=== PATIENT | male | born 1955 | race Hispanic/Latino ===

== ENCOUNTER 2019-11-20 15:25 | Emergency (ER) | payer SELFPAY ==
[~2019-11-20] VITALS: Ht 165.1 cm; Wt 59.0 kg
[2019-11-20] MEDS ORDERED: SODIUM CHLORIDE 0.9% 1000ML 1,000 ML IV STA ×2 (16:00→18:08)
--- NOTE | 2019-11-20 16:55 | Diagnostic Imaging Report ---
TECHNIQUE: Frontal view of the chest. INDICATION: ^Y ^RESP DISTRESS AT MEDICAL RESORT ^[id number] ^1620 COMPARISON: None DISCUSSION: Limited evaluation due to portable technique. Lines and hardware: Overlying EKG leads are noted. Tracheostomy tube is noted with tip projecting at the thoracic inlet. Heart and mediastinum: Cardiomediastinal silhouette and pulmonary vascularity are within normal limits. Lungs and pleura: There are patchy linear airspace opacities at the left lung base with silhouetting of the left hemidiaphragm. Negative for large effusion or pneumothorax. Soft tissues and bones: No acute abnormality. IMPRESSION: Patchy airspace opacities at the left lung base could relate to developing consolidation. Aspiration is a consideration. Signed by: Madi Germain MD on 11/20/2019 4:52 PM
[2019-11-20 17:12] LABS: BASOPHILS % 0.3 % (0.0-1.0); EOSINOPHILS % 0.3 % (0.0-6.0); HEMATOCRIT 42.2 % (38.2-49.6); HEMOGLOBIN 12.7 g/dL (14.0-18.0); INR 0.95; LYMPHOCYTES # (AUTO) 0.8 (1.0-3.2); LYMPHOCYTES % 7.9 % (18.0-39.1); MEAN CORPUSCULAR HEMOGLOBIN 23.2 pg (28-32); MEAN CORPUSCULAR HGB CONC 30.1 g/dL (31-35); MEAN CORPUSCULAR VOLUME 77.1 fL (81-99); MONOCYTES # (AUTO) 0.6 (0.2-0.8); MONOCYTES % 5.4 % (4.4-11.3); NEUTROPHILS % 85.4 % (38.7-80.0); PLATELET COUNT 354 x10e3/uL (140-360); PROTHROMBIN TIME 13.1 seconds (11.9-14.5); RED BLOOD COUNT 5.47 x10e6/uL (4.3-5.7)
[2019-11-20 17:13] LABS: PARTIAL THROMBOPLASTIN TIME 29.1 seconds (23.8-35.5)
[2019-11-20 17:19] LABS: ALANINE AMINOTRANSFERASE 37 IU/L (0-55); ALBUMIN 4.6 g/dL (3.5-5.0); ALBUMIN/GLOBULIN RATIO 1.5 (0.8-2.0); ALKALINE PHOSPHATASE 87 IU/L (40-150); ANION GAP 19.6 mmol/L (8-16); BLOOD UREA NITROGEN 20 mg/dL (7-26); BUN/CREATININE RATIO 42 (6-25); CARBON DIOXIDE 25 mmol/L (22-29); CHLORIDE 98 mmol/L (98-107); CREATINE KINASE 70 IU/L (30-200); CREATININE, SERUM 0.48 mg/dL (0.72-1.25); EST GLOMERULAR FILTRATION RATE > 60 ML/MIN (60-); GLUCOSE 166 mg/dL (74-118); POTASSIUM 4.6 mmol/L (3.5-5.1); SODIUM 138 mmol/L (136-145)
[2019-11-20 17:43] LABS: B-TYPE NATRIURETIC PEPTIDE2 21.6 pg/mL (0-100)
[2019-11-20 17:48] LABS: ABG HCO3 34 mmol/L (22-26); ABG PCO2 43 mmHg (35-45); ABG PO2 520 mmHg (80-105); ABG TCO2 35
--- OUTSIDE RECORDS SUMMARY | 2019-11-20 17:57 | XMS REPORT | Continuity of Care Document ---
Author Author [facility] t Organization [facility] Address [address] [place] [address] Phone Unavailable Care Team Providers Care Search Consultant Name Role Phone José Manuel CARR Attphys Unavailable Problems This patient has no known problems. Allergies, Adverse Reactions, Alerts This patient has no known allergies or adverse reactions. Medications This patient has no known medications. Procedures This patient has no known procedures. Results Test Description Test Time Test Comments Results Result Comments Source CHEST SINGLE (PORTABLE) 2019-11-20 16:51:00 [place] [address] Patient Name: YESSICA SILVA MR #: [id number] : 1955 Age/Sex: 63/M Req #: [id number] Adm Physician: Ordered by: OMAR CARR MD Report #: [id number] Location: ER Room/Bed: Procedure: [id number] DX/CHEST SINGLE (PORTABLE) Exam Date: 11/20/19 Exam Time: 1619 REPORT STATUS: Signed TECHNIQUE: Frontal view of the chest. INDICATION: Y RESP DISTRESS AT MEDICAL RESORT [id number] COMPARISON: None DISCUSSION: Limited evaluation due to portable technique. Lines and hardware: Overlying EKG leads are noted. Tra cheostomy tube is noted with tip projecting at the thoracic inlet. Heart and mediastinum: Cardiomediastinal silhouette and pulmonary vascularity are within normal limits. Lungs and pleura: There are patchy linear airspace opacities at the left lung base with silhouetting of the left hemidiaphragm. Negative for large effusion or pneumothorax. Soft tissues and bones: No acute abnormality . IMPRESSION: Patchy airspace opacities at the left lung base could relate to developing consolidation. Aspiration is a consideration. Signed by: Amparo Germain MD on 11/20/2019 4:52 PM Dictated By: AMPARO GERMAIN MD 51 Transcribed By: LEIA on 11/20/191651 COPY TO: OMAR CARR MD
[2019-11-20 17:58] LABS: CLARITY,URINE SL CLOUDY (CLEAR); COLOR,URINE STRAW (YELLOW); LEUKOCYTE ESTERASE ,URINE SMALL (NEGATIVE)
[2019-11-20 17:59] LABS: BILIRUBIN,URINE NEGATIVE (NEGATIVE); KETONES,URINE NEGATIVE (NEGATIVE); NITRITE,URINE NEGATIVE (NEGATIVE); PROTEIN,URINE DIPSTICK >=300 (NEGATIVE); URINE UROBILINOGEN 0.2 mg/dL (0.2 - 1)
--- NOTE | 2019-11-20 18:01 | NUR ---
Beatriz Bee - [phone] , pt's daughter
--- NOTE | 2019-11-20 18:08 | Emergency Department Note ---
History of Present Illnes History of Present Illness Chief Complaint: General Medicine Complaints History of Present Illness This is a 63 year old male brought by EMS for evaluation of elevated HR of 160 BPM. patient seen at bedside NAD with Sinus Tachycardia of 115 bpm. Patient does not appear to be in any acute distress . Historian: Sorter Pricer/EMS Arrival Mode: [facility] Treatment BILLET RECORDER: IV, O2, See EMS Report History limited by: condition of the patient Severity: mild Onset quality: sudden Duration (how long): hour(s) (1) Timing of current episode: constant Progression: improving Chronicity: new Context: Denies recent illness, Denies recent surgery, Denies recent immobil ization, Denies recent travel, Denies trauma/injury, Denies new medications, Denies hx of DVT/PE, Denies non-compliance w/ medications, Denies other Associated symptoms: Denies denies other symptoms, Denies confusion, Denies chest pain, Denies cough, Denies diaphoresis, Denies fever/chills, Denies headaches, Denies loss of appetite, Denies malaise, Denies nausea/vomiting, Den ies rash, Denies seizure, Denies shortness of breath, Denies syncope, Denies weakness, Denies other Past Medical/Family History Physician Review I have reviewed the patient's past medical and family history. Any updates have been documented here. 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, dysphagia, quadriplegia, amyotrophic lateral sclerosis, tachycardia Social History Alcohol Use: None Any Illegal Drug Use: No Review of Systems Review of Systems Constitutional: Reports no symptoms EENTM: Reports no symptoms Cardiovascular: Reports no symptoms Respiratory: Reports no symptoms Gastrointestinal: Reports no symptoms Genitourinary: Reports no symptoms Musculoskeletal: Reports no symptoms Integumentary: Reports no symptoms Neurological: Reports no symptoms Psychological: Reports no symptoms Endocrine: Reports no symptoms Hematological/Lymphatic: Reports no symptoms Physical Exam Related Data Allergies: Coded Allergies: No Known Allergies (Unverified , 11/20/19) Triage Vital Signs Vital Signs Date Time Temp Pulse Resp B/P (MAP) Pulse Ox O2 Delivery O2 Flow Rate FiO2 11/20/19 15:35 76 17 100 17.0 50 11/20/19 15:43 97.6 118/62 Trach Collar Vital signs reviewed: Yes Physical Exam CONSTITUTIONAL Constitutional: Present diaphoretic HENT HENT: Present normocephalic, Present atraumatic, Present oropharynx clear/moist, Present nose normal HENT L/R: Present left ext ear normal, Present right ext ear normal EYES Eyes: Reports PERRL, Reports conjunctivae normal NECK Neck: Present ROM normal PULMONARY Pulmonary: Present effort normal, Present breath sounds normal CARDIOVASCULAR Cardiovascular: Present heart sounds normal, Present tachycardia GASTROINTESTINAL Abdominal: Present soft, Present nontender, Present bowel sounds normal GENITOURINARY Genitourinary: Present exam deferred SKIN Skin: Present warm, Present dry MUSCULOSKELETAL Musculoskeletal: Present ROM normal NEUROLOGICAL Neurological: Present alert, Present other (multiple contractures b/l UE and b/l LE) PSYCHOLOGICAL Psychological: Present mood/affect normal, Present judgement normal Results Laboratory Result Diagram: 11/20/19 1630 11/20/19 1630 Laboratory Laboratory Tests Test 11/20/19 17:38 11/20/19 17:36 11/20/19 17:35 11/20/19 16:35 Urine Color Straw (YELLOW) Urine Clarity Sl cloudy (CLEAR) Urine pH 7 (5 - 7) Urine Specific [place] 1.025 (1.010-1.025) Urine Protein >=300 (NEGATIVE) Urine Glucose (UA) Negative (NEGATIVE) Urine Ketones Negative (NEGATIVE) Urine Blood Moderate (NEGATIVE) Urine Nitrite Negative (NEGATIVE) Urine Bilirubin Negative (NEGATIVE) Urine Urobilinogen 0.2 mg/dL (0.2 - 1) Urine Leukocyte Esterase Small (NEGATIVE) Arterial Blood pH 7.50 (7.35-7.45) Arterial Blood Partial Pressure CO2 43 mmHg (35-45) Arterial Blood Partial Pressure O2 520 mmHg (80-105) Arterial Blood HCO3 34 mmol/L (22-26) Arterial Blood Total CO2 35 Arterial Blood Oxygen Saturation 100.0 % (95-98) Arterial Blood Base Excess 11.0 mmol/L (-2 - 3) FiO2 100 % Lactic Acid Level 1.6 mmol/L (0.5-2.0) B-Type Natriuretic Peptide 21.6 pg/mL (0-100) Test 11/20/19 16:30 White Blood Count 10.50 x10e3/uL (4.8-10.8) Red Blood Count 5.47 x10e6/uL (4.3-5.7) Hemoglobin 12.7 g/dL (14.0-18.0) Hematocrit 42.2 % (38.2-49.6) Mean Corpuscular Volume 77.1 fL (81-99) Mean Corpuscular Hemoglobin 23.2 pg (28-32) Mean Corpuscular Hemoglobin Concent 30.1 g/dL (31-35) Red Cell Distribution Width 15.0 % (11.7-14.4) Platelet Count 354 x10e3/uL (140-360) Neutrophils (%) (Auto) 85.4 % (38.7-80.0) Lymphocytes (%) (Auto) 7.9 % (18.0-39.1) Monocytes (%) (Auto) 5.4 % (4.4-11.3) Eosinophils (%) (Auto) 0.3 % (0.0-6.0) Basophils (%) (Auto) 0.3 % (0.0-1.0) Neutrophils # (Auto) 9.0 (2.1-6.9) Lymphocytes # (Auto) 0.8 (1.0-3.2) Monocytes # (Auto) 0.6 (0.2-0.8) Eosinophils # (Auto) 0.0 (0.0-0.4) Basophils # (Auto) 0.0 (0.0-0.1) Absolute Immature Granulocyte (auto 0.07 x10e3/uL (0-0.1) Prothrombin Time 13.1 seconds (11.9-14.5) Prothromb Time International Ratio 0.95 Activated Partial Thromboplast Time 29.1 seconds (23.8-35.5) Sodium Level 138 mmol/L (136-145) Potassium Level 4.6 mmol/L (3.5-5.1) Chloride Level 98 mmol/L (98-107) Carbon Dioxide Level 25 mmol/L (22-29) Anion Gap 19.6 mmol/L (8-16) Blood Urea Nitrogen 20 mg/dL (7-26) Creatinine 0.48 mg/dL (0.72-1.25) Estimat Glomerular Filtration Rate > 60 ML/MIN (60-) BUN/Creatinine Ratio 42 (6-25) Glucose Level 166 mg/dL (74-118) Calcium Level 10.0 mg/dL (8.4-10.2) Total Bilirubin 0.2 mg/dL (0.2-1.2) Aspartate Amino Transf (AST/SGOT) 24 IU/L (5-34) Alanine Aminotransferase (ALT/SGPT) 37 IU/L (0-55) Alkaline Phosphatase 87 IU/L (40-150) Creatine Kinase 70 IU/L (30-200) Creatine Kinase MB 4.40 ng/mL (0-5.0) Troponin I 0.022 ng/mL (0-0.300) Total Protein 7.6 g/dL (6.5-8.1) Albumin 4.6 g/dL (3.5-5.0) Globulin 3.0 g/dL (2.3-3.5) Albumin/Globulin Ratio 1.5 (0.8-2.0) Imaging Imaging results reviewed: Yes Impressions [place] [address] Patient Name: YESSICA SILVA MR #: [id number] : 1955 Age/Sex: 63/M Req #: [id number] Adm Physician: Ordered by: OMAR CARR MD Report #: [id number] Location: ER Room/Bed: Procedure: [id number] DX/CHEST SINGLE (PORTABLE) Exam Date: 11/20/19 Exam Time: 1619 REPORT STATUS: Signed TECHNIQUE: Frontal view of the chest. INDICATION: ^Y ^RESP DISTRESS AT MEDICAL RESORT ^[id number] ^1619 COMPARISON: None DISCUSSION: Limited evaluation due to portable technique. Lines and hardware: Overlying EKG leads are noted. Tracheostomy tube is noted with tip projecting at the thoracic inlet. Heart and mediastinum: Cardiomediastinal silhouette and pulmonary vascularity are within normal limits. Lungs and pleura: There are patchy linear airspace opacities at the left lung base with silhouetting of the left hemidiaphragm. Negative for large effusion or pneumothorax. Soft tissues and bones: No acute abnormality. IMPRESSION: Patchy airspace opacities at the left lung base could relate to developing consolidation. Aspiration is a consideration. Signed by: Amparo Germain MD on 11/20/2019 4:52 PM Dictated By: AMPARO GERMAIN MD 51 Transcribed By: LEIA on 11/20/191651 COPY TO: OMAR CARR MD~ ECHOCARDIOGRAM : trace pericardial effusion ,no pericardial tamponade Procedures 12 Lead ECG Interpretation ECG Interpretation : ECG: ECG 1 Dryerman/Woman: Interpreted by ED physician Date: Nov 20, 2019 Time: 18:10 Prior ECG tracings: reviewed Rhythm: sinus tachycardia Rate: tachycardia BPM: 113 ST segments normal: Yes ST segment elevation: all T waves normal: Yes Clinical Impression: pericarditis Critical Care Time Total Critical Care Time (min): 31 Critical care time exclusive o: separately billable procedures Critcal care necessary due to: cardiac failure, circulatory failure, respiratory failure Critcal care time spent by me: discussion w consultants, interpret cardiac output measures, examination of patient, obtaining hx from patient/surrogate, order/perform tx or interventions, order/review laboratory studies, order/review radiographic studies, re-evaluation of patient condition Assessment & Plan Medical Decision Making MDM Diff Dx : STEMI, ACS, pericardial tamponade, pneumonia, PTX, sepsis, hypovolumia Assessment & Plan Final Impression: (1) Tachycardia (2) Pericarditis (3) UTI (urinary tract infection) Depart Disposition: DIS TO [facility] BED Last Vital Signs Date Time Temp Pulse Resp B/P (MAP) Pulse Ox O2 Delivery O2 Flow Rate FiO2 11/20/19 17:49 98.1 110 23 116/74 98 Ventilator 11/20/19 15:35 17.0 50 Medications in the ED Sodium Chloride 1,000 ml @ 0 mls/hr Q0M STAT IV Last administered on 11/20/19at 17:56; Admin Dose 100 MLS/HR; Start 11/20/19 at 16:00; Stop 11/20/19 at 16:04; Status DC Sodium Chloride 1,000 ml @ 0 mls/hr Q0M STAT IV Last administered on 11/20/19at 18:24; Admin Dose 250 MLS/HR; Start 11/20/19 at 18:08; Stop 11/20/19 at 18:10; Status DC Ketorolac Tromethamine 30 mg ONCE STAT IV ; Start 11/20/19 at 18:52; Stop 0 at 18:53; Status DC Ketorolac Tromethamine 30 mg STK-MED ONCE .ROUTE ; Start 11/20/19 at 22:27; Stop 11/20/19 at 22:21; Status DC Sodium Chloride 1,000 ml @ 0 mls/hr Q0M STAT IV Last administered on 11/20/19at 17:56; Admin Dose 100 MLS/HR; Start 11/20/19 at 16:00; Stop 11/20/19 at 16:04; Status DC LUPE MARTINEZ DO Nov 20, 2019 18:08
[2019-11-20 18:26] LABS: BACTERIA,URINE MANY /HPF; RBC,URINE >50 /HPF (0-5)
[2019-11-20] MEDS ORDERED: KETOROLAC TROMETHAMINE 30 MG/ML VIAL IV STA (18:52)
[2019-11-20 20:23] LABS: CREATINE KINASE MB 3.9 ng/mL (0-5.0)
--- NOTE | 2019-11-20 21:22 | NUR ---
ECHO BEING DONE AT BEDSIDE AT THIS TIME.
[2019-11-20] MEDS ORDERED: KETOROLAC TROMETHAMINE 30 MG/ML VIAL ONE (22:27)
[2019-11-20 23:04] VITALS: BP 112/73
== END 2019-11-21 00:15 ==
LOC: ER 15:45
DX: R00.0 Tachycardia, unspecified (principal); I31.9 Disease of pericardium, unspecified; N39.0 Urinary tract infection, site not specified; F41.9 Anxiety disorder, unspecified; G82.50 Quadriplegia, unspecified; G12.21 Amyotrophic lateral sclerosis; Z86.718 Personal history of other venous thrombosis and embolism
CPT/HCPCS: 36415; 36600; 71045; 80053; 81001; 82550; 82553; 82805; 83605; 83880; 84484; 85025; 85610; 85730; 87040; 87071; 87086; 87186; 87205; 93308; 94002; 99285; J1885; J7030; U0002